=== PATIENT | female | born 1980 | race Two or more races ===

== ENCOUNTER 2018-03-22 16:09 | Outpatient (CLI) | payer OTHER ==
[2018-03-22 16:33] LABS: ADD MAN DIFF? NO
[2018-03-22 16:39] LABS: WHITE BLOOD COUNT 12.3 10^3/ul (4.8-10.8)
[2018-03-22 16:39] LABS: BASOPHILS % 0.2 % (0.0-2.0); EOSINOPHILS # 0.1 10^3/ul (0.0-0.5); EOSINOPHILS % 1.1 % (0.0-7.0); HEMATOCRIT 40.3 % (37.0-47.0); LYMPHOCYTES # 1.9 10^3/ul (0.8-2.9); LYMPHOCYTES % 15.1 % (15.0-51.0); MEAN CORPUSCULAR HEMOGLOBIN 28.5 pg (29.0-33.0); MEAN CORPUSCULAR HGB CONC 32.3 g/dl (32.0-37.0); MEAN CORPUSCULAR VOLUME 88.4 fl (82.0-101.0); MEAN PLATELET VOLUME 12.7 fl (7.4-10.4); MONOCYTE # 0.9 10^3/ul (0.3-0.9); MONOCYTES % 7.2 % (0.0-11.0); NEUTROPHIL # 9.3 10^3/ul (1.6-7.5); NEUTROPHILS % 75.6 % (39.0-77.0); PLATELET COUNT 249 10^3/UL (140-415); RED BLOOD COUNT 4.56 10^6/ul (4.20-5.40); RED CELL DISTRIBUTION WIDTH 14.6 % (11.5-14.5)
[2018-03-22 16:45] LABS: ADD UMIC YES; UR ASCORBIC ACID NEGATIVE (NEGATIVE); UR BACTERIA FEW /HPF (NONE SEEN); UR BILIRUBIN (Dip) NEGATIVE (NEGATIVE); UR BLOOD (Dip) NEGATIVE (NEGATIVE); UR CLARITY CLEAR (CLEAR); UR COLOR STRAW (YELLOW); UR GLUCOSE (Dip) NEGATIVE (NEGATIVE); UR KETONES (Dip) NEGATIVE (NEGATIVE); UR LEUKOCYTE ESTERASE (Dip) TRACE Leu/ul (NEGATIVE); UR NITRITE (Dip) NEGATIVE (NEGATIVE); UR RBC 0 /HPF (0-5); UR SPECIFIC GRAVITY (Dip) 1.008 (1.003-1.030); UR TOTAL PROTEIN (Dip) NEGATIVE (NEGATIVE); UR UROBILINOGEN (Dip) NEGATIVE (NEGATIVE); UR WBC 1 /HPF (0-5)
[2018-03-22 17:02] LABS: INR 0.84; PROTIME 11.6 Sec (11.9-14.9); PT RATIO 0.9
[2018-03-22 17:03] LABS: PARTIAL THROMBOPLASTIN TIME 22.9 Sec (25.0-35.0)
[2018-03-22 17:06] LABS: ALANINE AMINOTRANSFERASE 13 IU/L (13-69); ALBUMIN 3.9 g/dl (3.3-4.9); ALBUMIN/GLOBULIN RATIO 1.14; ALKALINE PHOSPHATASE 177 IU/L (42-121); ANION GAP 11 (8-16); ASPARTATE AMINO TRANSFERASE 18 IU/L (15-46); BILIRUBIN,INDIRECT 0.2 mg/dl (0-1.1); BILIRUBIN,TOTAL 0.2 mg/dl (0.2-1.3); BLOOD UREA NITROGEN 7 mg/dl (7-20); CALCIUM 9.8 mg/dl (8.4-10.2); CARBON DIOXIDE 24 mmol/L (21-31); CHLORIDE 109 mmol/L (97-110); GLUCOSE 101 mg/dl (70-220); POTASSIUM 4.6 mmol/L (3.5-5.1); SODIUM 139 mmol/L (135-144); TOTAL PROTEIN 7.3 g/dl (6.1-8.1); URIC ACID 5.7 mg/dl (3.1-7.9)
== END 2018-03-22 18:59 | disposition home or self-care (01) ==
LOC: OBT 16:09 → L-D 16:10 → OBT 18:59
DX: O13.3 Gestational [pregnancy-induced] hypertension without significant proteinuria, third trimester (principal); O09.513 Supervision of elderly primigravida, third trimester; Z3A.38 38 weeks gestation of pregnancy
CPT/HCPCS: 76818; 80053; 81001; 84560; 85025; 85384; 85610; 85730

== ENCOUNTER 2018-03-23 21:46 | Inpatient (IN) | payer OTHER ==
[2018-03-23 22:42] LABS: ADD MAN DIFF? NO
[2018-03-23 22:55] LABS: BASOPHILS % 0.3 % (0.0-2.0); EOSINOPHILS # 0.1 10^3/ul (0.0-0.5); EOSINOPHILS % 1.2 % (0.0-7.0); HEMATOCRIT 36.8 % (37.0-47.0); HEMOGLOBIN 12.6 g/dl (12.0-16.0); LYMPHOCYTES # 2.1 10^3/ul (0.8-2.9); LYMPHOCYTES % 17.5 % (15.0-51.0); MEAN CORPUSCULAR HEMOGLOBIN 29.9 pg (29.0-33.0); MEAN CORPUSCULAR HGB CONC 34.2 g/dl (32.0-37.0); MEAN CORPUSCULAR VOLUME 87.2 fl (82.0-101.0); MONOCYTE # 0.9 10^3/ul (0.3-0.9); MONOCYTES % 7.5 % (0.0-11.0); NEUTROPHIL # 8.6 10^3/ul (1.6-7.5); PLATELET COUNT 239 10^3/UL (140-415); RED BLOOD COUNT 4.22 10^6/ul (4.20-5.40); RED CELL DISTRIBUTION WIDTH 14.4 % (11.5-14.5)
[2018-03-23 22:55] LABS: WHITE BLOOD COUNT 11.8 10^3/ul (4.8-10.8)
[2018-03-23 22:57] LABS: COLLECTION PERIOD 24 hrs
[2018-03-23 23:11] LABS: INR 0.85; PROTIME 11.7 Sec (11.9-14.9); PT RATIO 0.9
[2018-03-23 23:12] LABS: ALANINE AMINOTRANSFERASE 15 IU/L (13-69); ALBUMIN 3.4 g/dl (3.3-4.9); ALBUMIN/GLOBULIN RATIO 1.03; ALKALINE PHOSPHATASE 153 IU/L (42-121); ANION GAP 12 (8-16); ASPARTATE AMINO TRANSFERASE 17 IU/L (15-46); BILIRUBIN,INDIRECT 0.3 mg/dl (0-1.1); BILIRUBIN,TOTAL 0.3 mg/dl (0.2-1.3); BLOOD UREA NITROGEN 9 mg/dl (7-20); CALCIUM 8.9 mg/dl (8.4-10.2); CARBON DIOXIDE 21 mmol/L (21-31); CHLORIDE 106 mmol/L (97-110); CREATININE 0.64 mg/dl (0.44-1.00); GLUCOSE 94 mg/dl (70-220); PARTIAL THROMBOPLASTIN TIME 22.7 Sec (25.0-35.0); POTASSIUM 3.9 mmol/L (3.5-5.1); SODIUM 135 mmol/L (135-144); TOTAL PROTEIN 6.7 g/dl (6.1-8.1); URIC ACID 6.4 mg/dl (3.1-7.9)
[2018-03-23 23:22] LABS: VOLUME 3500 mls
[2018-03-23 23:31] LABS: COLLECTION PERIOD 24 hrs; VOLUME 3500 ml/24hrs
[2018-03-23 23:32] LABS: CREATININE CLEARANCE 148.3 mls/min (84.0-162.0); CREATININE,URINE RANDOM 36.62 mg/dl (20-320)
[2018-03-24] MEDS ORDERED: CARBOPROST 250 MCG INJ IM
[2018-03-24] MEDS ORDERED: LIDOCAINE 1% (MPF) 30 ML INJ INJ
[2018-03-24] MEDS ORDERED: METHYLERGONOVINE 0.2 MG INJ IM
[2018-03-24] MEDS ORDERED: BUTORPHANOL 2 MG INJ IV
[2018-03-24] MEDS ORDERED: MISOPROSTOL 200 MCG TAB PR
[2018-03-24] MEDS ORDERED: IBUPROFEN 600 MG TAB PO
[2018-03-24] MEDS ORDERED: OXYTOCIN 30 UNITS/LR 500 ML IV ×3
[2018-03-24] MEDS: LACTATED RINGER'S 1,000 ML IV* ×3 (00:32→17:00)
[2018-03-24 00:57] LABS: HEPATITIS B SURFACE ANTIGEN NEGATIVE (NEGATIVE)
[2018-03-24] MEDS: MISOPROSTOL 25 MCG CAPSULE PO ×3 (01:00→09:37)
[2018-03-24] MEDS ORDERED: MISOPROSTOL 25 MCG CAPSULE PO (01:00)
[2018-03-24] MEDS: AMPICILLIN 2 GM/NS (PMX) 100 ML IV (01:41)
[2018-03-24] MEDS: CALCIUM CARBONATE 500 MG CHEW TAB PO (04:32)
[2018-03-24] MEDS: AMPICILLIN 1 GM/NS (PMX) 50 ML IV ×5 (05:38→21:44)
[2018-03-24] MEDS: DINOPROSTONE 10 MG VAG SUPP VAG (13:06)
[2018-03-24] MEDS: PANTOPRAZOLE (EC) 40 MG TAB PO (13:22)
[2018-03-24 15:38] LABS: RAPID PLASMA REAGIN NONREACTIVE (NR)
[2018-03-24] MEDS: LACTATED RINGER'S 1,000 ML IV (23:05)
[2018-03-24] MEDS ORDERED: FENTAnyl 2MCG/ML-ROPIV 0.2% 100 ML (23:31)
[2018-03-25] MEDS ORDERED: ZOLPIDEM 5 MG TAB PO ×2 (00:30→16:00)
[2018-03-25] MEDS ORDERED: ONDANSETRON 4 MG INJ IV ×2 (00:30→16:00)
[2018-03-25] MEDS ORDERED: HYDROmorphONE 0.5 MG/0.5 ML SYG IV ×4 (00:30→16:00)
[2018-03-25] MEDS ORDERED: NALOXONE (0.4 MG/ML) INJ IV ×2 (00:30→16:00)
[2018-03-25] MEDS ORDERED: DIPHENHYDRAMINE 50 MG INJ IV ×2 (00:30→16:00)
[2018-03-25] MEDS: AMPICILLIN 1 GM/NS (PMX) 50 ML IV ×4 (01:24→13:24)
[2018-03-25] MEDS: LACTATED RINGER'S 1,000 ML IV* ×2 (01:24→12:33)
[2018-03-25] MEDS: OXYTOCIN 30 UNITS/LR 500 ML IV ×4 (03:14→23:00)
[2018-03-25] MEDS ORDERED: OXYTOCIN 30 UNITS/LR 500 ML BAG IV (07:00)
[2018-03-25] MEDS: FENTAnyl 2MCG/ML-ROPIV 0.2% 100 ML BAG EPI (07:57)
[2018-03-25] MEDS: DEXTROSE 5%-LR 1,000 ML IV (13:25)
[2018-03-25] MEDS ORDERED: METHYLERGONOVINE 0.2 MG INJ IM ×2 (14:00→19:00)
[2018-03-25] MEDS ORDERED: OXYTOCIN 30 UNITS/LR 500 ML IV ×2 (14:00→19:00)
[2018-03-25] MEDS ORDERED: CARBOPROST 250 MCG INJ IM ×2 (14:00→19:00)
[2018-03-25] MEDS ORDERED: MISOPROSTOL 200 MCG TAB PR ×2 (14:00→19:00)
[2018-03-25] MEDS: CEFAZOLIN 2 GM/50 ML (PMX) 50 ML IV (15:50)
[2018-03-25] MEDS ORDERED: KETOROLAC 30 MG INJ IV (16:00)
[2018-03-25] MEDS: KETOROLAC 30 MG INJ IV (17:01)
[2018-03-25] MEDS ORDERED: OXYCODONE/ACETAMINOPHEN (5/325) TAB PO (19:00)
[2018-03-25] MEDS ORDERED: LANOLIN 7 GM TUBE TOP (19:00)
[2018-03-25] MEDS: CEFAZOLIN 1 GM/50 ML (PMX) 50 ML IVPB (20:58)
[2018-03-25] MEDS: SENNA/DOCUSATE NA (8.6MG/50MG) TAB PO (20:58)
[2018-03-25] MEDS ORDERED: LIDOCAINE 1.5%/EPI MPF (SDV) 30 ML VIAL (23:07)
[2018-03-25] MEDS ORDERED: DEXAMETHASONE 4 MG/ML 1 ML INJ (23:07)
[2018-03-26] MEDS: OXYTOCIN 30 UNITS/LR 500 ML IV ×2 (02:31→06:57)
[2018-03-26 08:51] LABS: ADD MAN DIFF? NO
[2018-03-26 09:00] LABS: WHITE BLOOD COUNT 14.1 10^3/ul (4.8-10.8)
[2018-03-26 09:00] LABS: BASOPHILS % 0.1 % (0.0-2.0); EOSINOPHILS % 0.2 % (0.0-7.0); HEMATOCRIT 31.5 % (37.0-47.0); HEMOGLOBIN 10.3 g/dl (12.0-16.0); LYMPHOCYTES % 14.3 % (15.0-51.0); MEAN CORPUSCULAR HEMOGLOBIN 29.3 pg (29.0-33.0); MEAN CORPUSCULAR HGB CONC 32.7 g/dl (32.0-37.0); MEAN CORPUSCULAR VOLUME 89.7 fl (82.0-101.0); MEAN PLATELET VOLUME 12.6 fl (7.4-10.4); MONOCYTES % 6.8 % (0.0-11.0); PLATELET COUNT 201 10^3/UL (140-415); RED BLOOD COUNT 3.51 10^6/ul (4.20-5.40); RED CELL DISTRIBUTION WIDTH 14.9 % (11.5-14.5)
[2018-03-26] MEDS: SENNA/DOCUSATE NA (8.6MG/50MG) TAB PO ×2 (09:00→21:11)
[2018-03-26] MEDS: LACTATED RINGER'S 1,000 ML IV (10:58)
[2018-03-26] MEDS: IBUPROFEN 600 MG TAB PO (17:28)
[2018-03-27] MEDS: IBUPROFEN 600 MG TAB PO ×4 (00:01→17:44)
[2018-03-27] MEDS: SENNA/DOCUSATE NA (8.6MG/50MG) TAB PO ×2 (08:58→22:07)
[2018-03-27] MEDS: HYDROCODONE/APAP (5/325) TAB PO ×2 (13:35→22:08)
[2018-03-27] MEDS: OXYCODONE/ACETAMINOPHEN (5/325) TAB PO (19:02)
[2018-03-28] MEDS ORDERED: VITAMIN A & D 5 GM OINT PACKET TOP (04:42)
[2018-03-28] MEDS: IBUPROFEN 600 MG TAB PO ×3 (06:32→12:32)
[2018-03-28] MEDS: DIPHTH/TET/ACEL PERTUSS (ADULT) 0.5 ML VIAL IM* (09:00)
[2018-03-28] MEDS: SENNA/DOCUSATE NA (8.6MG/50MG) TAB PO (09:39)
== END 2018-03-28 13:35 | disposition home or self-care (01) | DRG 766 ==
LOC: OBT 21:46 → L-D 21:47 → PP1 03-25 18:29 → OBT 23:47 → L-D 23:49
PROC: 10D00Z1 Extraction of Products of Conception, Low, Open Approach (ICD-10-PCS; principal; 2018-03-24)
DX: O13.4 Gestational [pregnancy-induced] hypertension without significant proteinuria, complicating childbirth (principal); Z3A.38 38 weeks gestation of pregnancy; Z37.0 Single live birth
CPT/HCPCS: 62319; 76815; 76818; 80053; 82575; 84156; 84560; 85025; 85610; 85730; 86592; 86850; 86900; 86901; 87340; 99464